=== PATIENT | female | born 2000 | race Caucasian/White ===

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

== ENCOUNTER → 2018-02-25 14:43 | Outpatient (CLI) | payer OTHER, SELFPAY ==
[2018-02-25 23:11] LABS: Probe Check PASS; Sample Adequacy Control PASS; Specimen Processing Control PASS; Trichomonas Vag DNA by PCR Negative (Negative)
== END ==
PROVIDERS: Visit Provider Obstetrics & Gynecology
DX: Z11.3 Encounter for screening for infections with a predominantly sexual mode of transmission (principal)
CPT/HCPCS: 87661

== ENCOUNTER → 2018-05-01 15:22 | Outpatient (CLI) | payer OTHER, SELFPAY ==
[2017-04-06 03:23] VITALS: BMI 37.1
[2018-05-01 17:18] LABS: Probe Check PASS; Sample Adequacy Control PASS; Specimen Processing Control PASS; Trichomonas Vag DNA by PCR Negative (Negative)
[2018-05-01 17:40] LABS: Chlamydia Trachomatis by PCR Negative (Negative); Neisserai gonorrhoeae by PCR Negative (Negative); Probe Check PASS; Sample Adequacy Control PASS; Specimen Processing Control PASS
[2018-05-04 11:29] LABS: HEPATITIS B SURFACE AG Negative (Negative); Hep B Surface Antibodies Non Reactive (.); Hep C Antibodies 0.1 s/co ratio (0.0-0.9)
--- OUTSIDE RECORDS SUMMARY | 2018-07-06 11:04 | XMS RPT_ITS ---
:2000 Author Organization OHIP Care Team Providers Name Role Phone Viola Mccoy Attending Unavailable Primay Care Physicia, No Primary Care Unavailable Viola Mccoy Attending Unavailable Primay Care Physicia, No Primary Care Unavailable Viola Mccoy Attending Unavailable Primay Care Physicia, No Primary Care Unavailable Kambalapalli, Xander Admitting Unavailable Kambalapalli, Xander Attending Unavailable Bojtos, Evonne Primary Care Unavailable Romelia Hilliard Attending Unavailable [place]amb[place], Xander Primary Care Unavailable Romelia Hilliard Admitting Unavailable [place], Xander Admitting Unavailable [place], Xander Attending Unavailable Bojtos, Evonne Primary Care Unavailable Angel Elizondo Admitting Unavailable Angel Elizondo Attending Unavailable Bojtos, Evonne Primary Care Unavailable Eduardo Pacheco Attending Unavailable Bojtos, Evonne Primary Care Unavailable Eduardo Pacheco Admitting Unavailable Wurstle, Pita M Admitting Unavailable Wurstle, Pita M Attending Unavailable Bojtos, Evonne Primary Care Unavailable Wurstle, Pita M Admitting Unavailable Wurstle, Pita M Attending Unavailable Bojtos, Evonne Primary Care Unavailable [place]ambalapalli, Xander Admitting Unavailable [place]ambal[place], Xander Attending Unavailable Bojtos, Evonne Primary Care Unavailable Gio, Dona S Admitting Unavailable Gio, Dona S Attending Unavailable Bojtos, Evonne Primary Care Unavailable KAMBALAPALLI, XANDER Attending Unavailable BOJTOS, EVONNE A Referring Unavailable BOJTOS, EVONNE A Primary Care Unavailable KAMBALAPALLI, XANDER Attending Unavailable BOJTOS, EVONNE A Referring Unavailable BOJTOS, EVONNE A Primary Care Unavailable PROBLEMS PROBLEMS DATE TYPE CONDITION / CODE ATTENDING STATUS SOURCE 05/01/2018 Unknown Z11.3 - Encounter Nadine, Active Adrian for screening for [facility] with [facility] Repository sexual mode of transmission / Z11.3(ICD-10) PROCEDURES PROCEDURES No Procedure Records FoundRESULTS RESULTS HEPATITIS B SURFACE Collected: 05/01/2018 Status: F Source: ADRIAN AG 2:40 PM [facility] REPOSITORY TYPE CODE TESTS RESULT OUT OF RANGE REFERENCE UNITS LAB L3100.0400 Negative Normal HB Negative SURF AG Result Comment: Performed at: - [facility] [address] [id number] Ctrs: Daniel Shi PhD, Phone: [phone] Performed By: #### L3100.0390, L3100.0528, L3100.0625 #### [facility] (refer to report for specific site) refer to report for address and phone number HEP B SURFACE Collected: 05/01/2018 Status: F Source: ADRIAN ANTIBODIES 2:40 PM [facility] REPOSITORY TYPE CODE TESTS RESULT OUT OF RANGE REFERENCE UNITS LAB L3100.0528 . Normal Hep B Non Reactive Daniel AB Result Comment: Non Reactive: Inconsistent with immunity, less than 10 mIU/mL Reactive: Consistent with immunity, greater than 9.9 mIU/mL Verified by repeat analysis Performed By: #### L3100.0390, L3100.0528, L3100.0625 #### [facility] (refer to report for specific site) refer to report for address and phone number HEPATITIS C ANTIBODIES Collected: 05/01/2018 Status: F Source: [place] 2:40 PM [facility] REPOSITORY TYPE CODE TESTS RESULT OUT OF RANGE REFERENCE UNITS LAB L3100.0650 0.0-0.9 s/co ratio Normal HEP C AB 0.1 Result Comment: Negative: < 0.8 Indeterminate: 0.8 - 0.9 Positive: > 0.9 The CDC recommends that a positive HCV antibody result be followed up with a HCV Nucleic Acid Amplification test ([id number]). Performed By: #### L3100.0390, L3100.0528, L3100.0625 #### [facility] (refer to report for specific site) refer to report for address and phone number CT/NG WCH BY PCR Collected: 05/01/2018 Status: F Source: [place] 2:15 PM [facility] REPOSITORY TYPE CODE TESTS RESULT OUT OF RANGE REFERENCE UNITS LAB L8200.2100 Negative Normal Chlam Negative Trac PCR LAB L8200.2200 Negative Normal NG by Negative PCR Performed By: #### L8200.2000, L8200.3000 #### [facility] [address] [place], [place], [id number] TRICHOMONAS VAGINALIS Collected: 05/01/2018 Status: F Source: [place] WCH/PCR 2:15 PM [facility] REPOSITORY TYPE CODE TESTS RESULT OUT OF RANGE REFERENCE UNITS LAB L8200.3100 Negative Normal TV RESULT Negative Performed By: #### L8200.2000, L8200.3000 #### [facility] [address] [place], [place], [address] TRICHOMONAS VAGINALIS Collected: 02/25/2018 Status: F Source: [place] WCH/PCR 2:00 PM [facility] REPOSITORY TYPE CODE TESTS RESULT OUT OF RANGE REFERENCE UNITS LAB L8200.3100 Negative Normal TV RESULT Negative Performed By: #### L8200.3000 #### [facility] [address] [place], [place], [address] CMP Collected: 01/27/2018 Status: F Source: [place]ISM 3:31 PM [facility] REPOSITORY TYPE CODE TESTS RESULT OUT OF RANGE REFERENCE UNITS LAB [id number](L 6-16 mEq/L OINC) AGAP Normal 12 LAB [id number](L 70-99 mg/dL OINC) Glucose Normal Lvl 78 LAB [id number](L 6-23 mg/dL OINC) BUN Normal 12 LAB [id number](LO 0.6-1.3 mg/dL INC) Normal Creatinine 0.8 LAB [id number](L 8.5-10.7 mg/dL OINC) Calcium Normal Lvl 10.0 LAB [id number](L 136-145 mEq/L OINC) Sodium Normal Lvl 140 LAB [id number](L 3.5-5.3 mEq/L OINC) Normal Potassium Lvl 4.3 LAB [id number](L 98-107 mEq/L OINC) Chloride Normal 106 LAB [id number](L 21.0-32.0 mEq/L OINC) CO2 Normal 26.0 LAB [id number](L 33-110 Int._Unit/ OINC) L Alk Phos Normal 56 LAB [id number](L 0.0-1.2 mg/dL OINC) Bili Normal Total 0.5 LAB [id number](L 3.4-5.0 G/DL OINC) Albumin Normal Lvl 4.6 LAB [id number](L 6.4-8.2 gm/dL OINC) Total Normal Protein 7.5 LAB [id number](L 7-45 Int._Unit/ OINC) L ALT Normal 23 LAB [id number](L 9-39 Int._Unit/ OINC) L AST Normal 21 LAB [id number](L 5.4-30.0 ratio OINC) Normal BUN/Creat Ratio 15.0 LAB [id number](L 2.0-4.0 G/DL OINC) Globulin Normal 3.0 LAB [id number](L 1.1-1.9 ratio OINC) A/G Normal Ratio 1.6 Performed By: #### [id number] #### [facility] [employer] [address] [place] [address] EGFR Collected: 01/27/2018 Status: F Source: [place] 3:31 PM [facility] REPOSITORY Order Comment: Order added by Discern Expert. TYPE CODE TESTS RESULT OUT OF RANGE REFERENCE UNITS LAB [id number](LO mL/min/1.73 INC) m2 Normal eGFR >60 LAB [id number](LO mL/min/1.73 INC) m2 Normal eGFR AA >60 Performed By: #### [id number] #### [facility] [employer] [address] [place] [address] TSH Collected: 01/27/2018 Status: F Source: [place] 3:31 PM [facility] REPOSITORY TYPE CODE TESTS RESULT OUT OF RANGE REFERENCE UNITS LAB [id number](LO 0.30-5.60 mIU/m INC) Normal TSH 2.64 Performed By: #### [id number] #### [facility] [employer] [address] [place] [address] FREE T4 Collected: 01/27/2018 Status: F Source: [place] 3:31 PM [facility] REPOSITORY TYPE CODE TESTS RESULT OUT OF RANGE REFERENCE UNITS LAB [id number](LO 0.58-1.64 ng/dL INC) Normal T4 Free 0.94 Performed By: #### [id number] #### [facility] [employer] [address] [place] [address] VITAMIN D 25 HYDROXY Collected: 01/27/2018 Status: F Source: [place] 3:31 PM [facility] REPOSITORY TYPE CODE TESTS RESULT OUT OF RANGE REFERENCE UNITS LAB [id number](L 30.0-100.0 ng/mL OINC) Normal Vitamin D 25 37.0 Hydroxy Performed By: #### [id number] #### [facility] [employer] [address] [place] [address] HGBA1C Collected: 01/27/2018 Status: F Source: [place] 3:31 PM [facility] REPOSITORY TYPE CODE TESTS RESULT OUT OF RANGE REFERENCE UNITS LAB [id number]( 4.0-6.3 % LOINC) Normal Hemoglobin A1c 4.9 Performed By: #### [id number] #### K[facility] Chemistry Manual Subsection [address] [place] [address] LITHIUM Collected: 01/27/2018 Status: F Source: [place] 3:30 PM [facility] REPOSITORY TYPE CODE TESTS RESULT OUT OF REFERENCE UNITS RANGE LAB [id number](LO 0.6-1.2 mmol/L INC) Low Celina Lvl 0.1 Result Comment: Detection Limit = 0.1 <0.1 indicates None Detected Performed At: [facility] [address] [id number] Jose Guadalupe Sanchez PhD Ph:[phone] Performed By: #### [id number] #### [facility]ASH Send Outs Subsection [facility] [place] [address] CBC W/ AUTO DIFF Collected: 12/19/2017 Status: F Source: [place] 1:00 PM [facility] REPOSITORY TYPE CODE TESTS RESULT OUT OF RANGE REFERENCE UNITS LAB [id number](L 3.6-11.0 E3/mcL OINC) Normal WBC 11.0 LAB [id number](L 3.90-5.40 E6/mcL OINC) Normal RBC 4.91 LAB [id number](L 12.0-16.0 G/DL OINC) Normal Hgb 14.5 LAB [id number](L 36.0-48.0 % OINC) Normal Hct 44.0 LAB [id number](L 11.5-14.5 % OINC) Normal RDW 13.4 LAB [id number](L 27.0-31.0 pg OINC) Normal MCH 29.5 LAB [id number](L 33.0-37.0 G/DL OINC) Low MCHC 32.9 LAB [id number](L 78.0-100.0 fL OINC) Normal MCV 89.6 LAB [id number](L 7.4-11.0 fL OINC) Normal MPV 7.8 LAB [id number](L 130-400 E3/mcL OINC) Normal Platelet 361 Performed By: #### [id number] #### [facility] [place] [address] AUTO DIFF Collected: 12/19/2017 Status: F Source: [place] 1:00 PM [facility] REPOSITORY Order Comment: Order Added by Discern Expert. TYPE CODE TESTS RESULT OUT OF RANGE REFERENCE UNITS LAB [id number](L 37.0-75.0 % OINC) Normal Neutro Auto 55.2 LAB [id number](L 20.0-55.0 % OINC) Normal Lymph Auto 34.7 LAB [id number](L 0.0-10.0 % OINC) Normal [place] Auto 4.8 LAB [id number](L 0.0-11.0 % OINC) Normal Eos Auto 4.1 LAB 82138012(L 0.0-2.0 % OINC) Normal Basophil Auto 1.2 LAB [id number](L 1.4-6.5 E3/mcL OINC) Normal Neutro 6.1 Absolute LAB [id number](L 1.2-3.4 E3/mcL OINC) High Lymph Absolute 3.8 LAB [id number](L 0.0-0.7 E3/mcL OINC) Normal [place] Absolute 0.5 LAB [id number](L 0.0-0.7 E3/mcL OINC) Normal Eos Absolute 0.5 LAB [id number](L 0.0-0.2 E3/mcL OINC) Normal Basophil 0.1 Absolute Performed By: #### [id number] #### [facility] [place] [id number] BMP Collected: 12/19/2017 Status: F Source: [place] 1:00 [facility] REPOSITORY TYPE CODE TESTS RESULT OUT OF RANGE REFERENCE UNITS LAB [id number](L 70-99 mg/dL OINC) Glucose Normal Lvl 78 LAB [id number](L 7-18 mg/dL OINC) BUN Normal 10 LAB [id number](LO 0.6-1.3 mg/dL INC) Normal Creatinine 0.8 LAB [id number](L 5.4-30.0 ratio OINC) Normal BUN/Creat Ratio 12.5 LAB [id number](L 8.4-10.2 mg/dL OINC) Calcium Normal Lvl 9.2 LAB [id number](L 136-145 mEq/L OINC) Sodium Normal Lvl 138 LAB [id number](L 3.5-5.1 mEq/L OINC) Normal Potassium Lvl 4.2 LAB [id number](L 98-107 mEq/L OINC) Chloride Normal 104 LAB [id number](L 24.0-30.0 mEq/L OINC) Low CO2 23.7 Performed By: #### [id number] #### [facility] [place] [id number] EGFR Collected: 12/19/2017 Status: F Source: [place] 1:00 [facility] REPOSITORY Order Comment: Order added by Discern Expert. TYPE CODE TESTS RESULT OUT OF RANGE REFERENCE UNITS LAB [id number](LO mL/min/1.73 INC) m2 Normal eGFR >60 LAB [id number](LO mL/min/1.73 INC) m2 Normal eGFR AA >60 Performed By: #### [id number] #### [facility] [employer] [facility] [place] [address] LITHIUM Collected: 12/19/2017 Status: F Source: [place] 1:00 PM [facility] REPOSITORY TYPE CODE TESTS RESULT OUT OF REFERENCE UNITS RANGE LAB [id number](LO 0.6-1.2 mmol/L INC) Low [place] Lvl 0.5 Result Comment: Detection Limit = 0.1 <0.1 indicates None Detected Performed At: [facility] [address] [id number] Jose Guadalupe Sanchez PhD Ph:[phone] Performed By: #### [id number] #### KASH [employer] Outs Subsection [address] [place] [address] Observed: 11/26/2017 Status: F Source: [facility] URINE 5:41 PM [facility] REPOSITORY Final Report: >100,000 cfu/ml Escherichia coli ORGANISM: EC SUSCEPTIBILITY RESULTS Antibiotic EMILY Dilutn EMILY Interp ORGANISM: EC Amox/Cla : <=8/4 S Amp : <=8 S Amp/Sul : <=8/4 S Cefaz : <=8 S Cefo : <=2 S Cipro : <=1 S Gent : <=4 S Levo : <=2 S Alix : <=1 S Nitro : <=32 S Pip/Chu : <=16 S Tetra : <=4 S Tobra : <=4 S SXT : <=2/38 S Performed By: #### [id number] #### [facility] [employer] Subsection [address] [place] [address] PROGRESS NOTE Observed: 11/21/2017 Status: COMPLETED Source: [place] 12:50 PM [facility] REPOSITORY Dear Doctor Evonne Nicholson MD: We had the pleasure of seeing your patient, Scarlett Page, at the [facility] clinic for follow up of Hypothyroidism. Scarlett is a 17 y.o. female who comes to the visit with her mom. HPI: Scarlett is a 17 y.o. female with history of anxiety and depression, who was seen for initial visit in February 2015 in view of Goiter and thyroid nodule. Was seen by PCP for excess weight gain, noted goiter and Thyroid Ultrasound was requested. Thyroid Ultrasound showed a 4 cm solid left thyroid nodule. She was otherwise asymptomatic. After initial visit she had FNA/ core biopsy of the lesion, which showed a benign follicular lesion, vs a well differentiated follicular carcinoma. Surgery discussed option of hemithyroidectomy, with possible total thyroidectomy based on pathology report. Family elected to go with total thyroidectomy. She underwent Total thyroidectomy on 04/11/15, with no complications . Final pathology was hyperplastic nodule with thyroiditis. She has history of depression and anxiety, and is followed by Psychiatry and psychology. No family history of thyroid disease or thyroid cancer. Interval history: Last seen 05/2017. Has been well since last visit. No new concerns from mom. After last visit levothyroxine dose was decreased to 175 mcg as her TSh was suppressed. Repeat labs on 175 mcg from September 2017, were normal. Family completed labs again 2 days before the visit, and TSH now at 8.3. FNA reports she may have missed 1 or 2 doses in total since last visit. Takes Synthroid 175 mcg daily, in the morning 30 min before breakfast. Mom gives her medication, since her past history of suicidal ideation. Reports good energy, no fatigue, no constipation, no hair loss, no dry skin, cold intolerance. Denies palpitations, chest pain, excessive sweating, heat intolerance. No neck swelling, no pain or difficulty swallowing. No change in voice or hoarseness. Regular menstrual cycles on OCP's. LMP 2weeks ago Mood has been stable. Getting weekly counseling. Was started on lithium about 3 months ago. Scarlett reports that she has been doing better about watching her diet, not eating as much late in the evening. Weight stable since last visit. Denies polyuria or polydipsia. Scarlett graduated from school. Will be starting college at [employer]. PAST MEDICAL HISTORY: Scarlett was born at term weeks via vaginal. history was unremarkable, birthweight of 6lbs 4oz, length of 19'. Denies problems with breathing, poor weight gain, jaundice, heart murmur, low blood sugar or seizures during the first month of life. Medical problems: Patient Active Problem List Diagnosis Date Noted BMI (body mass index), pediatric, 95-99% for age 0205/16/2015 Postoperative hypothyroidism 05/16/2015 BMI (body mass index), pediatric, greater than or equal to 95% for age 0205/16/2015 S/P thyroidectomy 04/11/2015 Thyroid nodule 03/16/2015 Goiter 03/16/2015 Depressive disorder 03/08/2015 Anxiety 03/08/2015 Hospitalizations: none Surgeries: Past Surgical History: Procedure Laterality Date THYROIDECTOMY N/A 04/11/2015 THYROIDECTOMY total; flexible laryngoscopy performed by Sami Stuart MD at [facility] OR TONSILLECTOMY AND ADENOIDECTOMY SOCIAL HISTORY: Scarlett lives with both parents and brother. Scarlett will be at [employer] in [facility]. FAMILY HISTORY: Family History Problem Relation Age of Onset High Blood Pressure Mother High Blood Pressure Father High Cholesterol Father Cancer Maternal Grandfather skin cancer Bleeding Prob Maternal Grandfather Hernia Brother Diabetes Neg Hx Thyroid Disease Neg Hx Early Puberty Neg Hx Short Stature Neg Hx Anesth Problems Neg Hx Post-op N/V Neg Hx Father: 48 years, 5ft 10', HTN, puberty 12 years Mother: 47 years, 5ft 6', HTN, puberty 12 years Siblings: 13 yr old brother, healthy ALLERGIES: Amoxicillin CURRENT MEDICATIONS: Current Outpatient Prescriptions Medication Sig Dispense Refill lithium 300 MG tablet Take 600 mg by mouth 2 times daily levothyroxine (SYNTHROID) 175 MCG tablet Take 1 Tab (175 mcg) by mouth daily This is a dose adjustment to take 175 mcg daily 90 Tab 3 citalopram (CELEXA) 20 MG tablet Take 40 mg by mouth Desogestrel-Ethinyl Estradiol (VIORELE PO) Take by mouth topiramate (TOPAMAX) 200 MG tablet Take by mouth 2 times daily clonazePAM (KLONOPIN) 0.5 MG tablet Take 0.5 mg by mouth 3 times daily TRAZODONE HCL PO Take 25 mg by mouth ARIPiprazole (ABILIFY) 2 MG tablet Take by mouth daily No current facility-administered medications for this visit. REVIEW OF SYSTEMS: Pertinent items are noted in HPI. CONSTITUTIONAL: negative for fever, weight loss, excessive appetite or fatigue, EYES: negative for change in vision ENT: negative for difficulty swallowing RESPIRATORY: negative for difficulty breathing, wheezing, stridor, tachypnea, CARDIOVASCULAR: negative for increased heart rate, syncope,cyanosis GI: negative for constipation, vomiting, diarrhea, : negative for frequent urination and nocturia; LMP 4 weeks ago SKIN: negative for flushing, changes in skin temperature or texture MUSCULOSKELETAL: negative for joint pain/ swelling, muscle weakness or swelling NEURO: negative for headache, weakness, visual changes, tremors PSYCH: positive for sleep disturbance, mood changes, depression, anxiety PHYSICAL EXAMINATION: Blood pressure 122/80, pulse 78, height 169.1 cm, weight 98.2 kg. 98 %ile (Z= 2.16) based on CDC 2-20 Years [id number] data using vitals from 11/21/2017. Body mass index is 34.34 kg/m . 97 %ile (Z= 1.90) based on CDC 2- Years BMI-for-age data using vitals from 11/21/2017. 82 %ile (Z= 0.90) based on CDC - Years [id number]-lbe-dml data using vitals from 11/21/2017., Wt Readings from Last 2 Encounters: 11/21/17 98.2 kg (98 %, Z= 2.16)* 05/23/17 98.2 kg (98 %, Z= 2.16)* * Growth percentiles are based on CDC 2-20 Years data. Ht Readings from Last 2 Encounters: 11/21/17 169.1 cm (82 %, Z= 0.90)* 05/23/17 167.5 cm (75 %, Z= 0.66)* * Growth percentiles are based on CDC 2-20 Years data. BP Readings from Last 2 Encounters: 11/21/17 122/80 05/23/17 112/78 Blood pressure percentiles are 81 % systolic and 93 % diastolic based on the November 2016 AAP Clinical Practice Guideline. Blood pressure percentile targets: 90: 127/78, 95: 129/82, 95 + 12 mmH/94. This reading is in the Stage 1 hypertension range (BP >= 130/80). GENERAL APPEARANCE: alert, cooperative, no dysmorphic features, obese SKIN: no rashes, acanthosis nigricans +, no striae, warm and dry EYES: conjunctivae clear, pupils equal, round, reactive to light ENT: lips normal without lesions, Pharynx clear,and tonsils normal THYROID: no palpable thyroid, scar over anterior neck, LYMPH: cervical nodes are not enlarged LUNGS: unlabored respirations, clear to auscultation, good air exchange HEART: regular rate, regular rhythm, no murmurs detected, no edema of extremities ABDOMEN: soft, nontender, nondistended, no hepatosplenomegaly, no masses CHEST: symmetric MUSCULOSKELETAL: normal range of motion, no joint swelling or deformities, normal muscle mass : Deferred. NEURO: cranial nerves grossly intact, sensation grossly normal, Scarlett is alert and oriented, patellar and brachial reflexes are 2+. PSYCH: Scarlett is oriented and flat affect. LABS REVIEWED: Ref. Range 05/20/2017 00:00 07/31/2017 00:00 10/07/2017 00:00 11/19/17 T4 Free External Unknown 1.07 1.01 0.84 0.69 Thyroid Stimulating Hormone External Unknown 0.10 0.22 1.47 8.32 Decreased levothyroxine to 175 mcg alternating with 200 ( was on 200 mcg) Decreased to 175 mcg On 175 mcg 0n 175 mcg 02/2017: TSH 0.35 11/01/16: HbA1C 5.3% Glucose 79 Cholesterol 213 Triglyceride 165 LDL: 125 HDL 55 ALT: 27 AST: 30 10/15/2016 00:00 A1c 5.2 T4 Free External 0.89 Thyroid Stimulating Hormone External 1.82 04/2016: TSH 7.96 Free T4 0.72 10/13/15: TSH 8.03 Free T4 0.81 08/2015: TSH 42.7; Free T4: 0.56 Was taking multivitamin with Iron at the same time. Increase dose to 150 mcg 05/11/15: TSH: 16.45 Free T4: 0.65 Calcium: 9.6 Phosphorus: 3.5 Ref. Range 04/11/2015 20:20 04/12/2015 06:15 Calcium, Ionized WB Latest Range: 4.60-5.28 mg/dL 4.49 (L) 4.42 (L) pH Latest Range: 7.350-7.450 7.408 7.435 Phosphorus Latest Range: 2.7-4.5 mg/dL 2.9 4.1 04/11/15: Pathology: FINAL DIAGNOSIS: A. Pretracheal lymph node, biopsy - No metastatic disease identified. B. Thyroid, left lobectomy - Hyperplastic nodule and patchy chronic thyroiditis. C. Tissue, biopsy, rule out parathyroid - Fragments of parathyroid tissue. D. Thyroid, right lobectomy - Patchy chronic thyroiditis. E. Left jugular lymph nodes, biopsy - No metastatic disease Identified. 03/08/15: Core biopsy: FINAL DIAGNOSIS: Follicular lesion, needle core of thyroid. COMMENT: The specimen could reflect a follicular adenoma or well differentiated follicular carcinoma. Recommend surgical removal. 03/08/15: FNA: Diagnostic Category: Benign Benign follicular nodule, consistent with a hyperplastic/adenomatoid nodule. Many groups of follicular cells and colloid present. Component Latest Ref Rng 03/08/2015 03/08/2015 03/08/2015 10:53 AM 10:53 AM 10:53 AM Sodium 133 - 145 mEq/L 139 Potassium 3.3 - 5.1 mEq/L 4.2 Chloride 96 - 108 mEq/L 106 Carbon Dioxide 22.0 - 29.0 mEq/L 24.6 BUN 4 - 19 mg/dL 13 Glucose 70 - 99 mg/dL 79 Total Bilirubin 0.0 - 1.0 mg/dl 0.4 AST 0 - 31 U/L 23 ALT 0 - 31 U/L 20 Alkaline Phosphatase 47 - 119 U/L 47 Calcium 7.6 - 11.0 mg/dL 9.6 Protein, Total 5.9 - 8.4 g/dL 7.4 Albumin 3.2 - 4.5 g/dL 4.2 Creatinine 0.50 - 1.00 mg/dL 0.70 Anti-Thyroglobulin Ab 0.0 - 4.0 IU/mL 13.5 (H) Thyroidperoxidase Ab 0.00 - 0.80 ISR 1.00 (H) TSH 0.350 - 5.500 uIU/mL 1.002 T4, Free 0.8 - 1.4 ng/dL 1.2 T3, Total 87.0 - 167.0 ng/mL 184.0 (H) 184.0 (H) 01/14/15: CBC: normal Hb 12.0 Glucose: 82 Per PCP note: Normal CMP, CBC, 11/2014: TSH 3.13 04/2013: TSH 0.879 IMAGING: Thyroid Ultrasound: 02/2015 Findings: right lobe 55 X 11X16 mm Left lobe: 66 X21X27 mm dominant mid to inferior pole solid/ complex nodule measuring 41 X21X35 mm. Impression: Thyromegaly with a dominant 4 cm nodule Reviewed images: homogenous echogenicity, large, well defined, solid nodule noted in left lobe. No abnormal calcifications noted. IMPRESSION: Scarlett is a 17 y.o. female with history of depression, here for follow up of Hypothyroidism s/p Total Thyroidectomy for Thyroid Nodule: Large 4 cm nodule in left thyroid lobe, with FNA positive for follicular lesion ( adenoma vs carcinoma on biopsy), underwent total thyroidectomy in March 2015 with no complications. Pathology confirmed hyperplastic nodule with thyroiditis. She is currently on synthroid 175 mcg replacement, and is clinically euthyroid. Her recent TSH is mildly elevated, however previous level from September 2017, on the same dose was normal. Will continue same dose and repeat TFT's in 2-3 months. BMI greater than 95 th centile: Weight stable since last visit. Encouraged about the positive results so far. PLAN: Reviewed recent labs. Continue levothyroxine to 175 mcg. Repeat Thyroid labs in 2-3 months. provided orders for repeat labs. Will also get CMP, HbA1C, Vitamin D. Discussed balanced diet, regular physical activity and excellent results so far. Follow up in 6-8 months, sooner if concerns. Discussed transition to adult provider. Advised to check when they switch to adult primary care provider, as most are comfortable with treating hypothyroidism. For now will continue to follow here. Counseling and/or coordination of care (face to face time in the office) was greater than 30 minutes which is more than 50% of the total time of 45 minutes spent on the encounter. Thank you for the opportunity to participate in the care of Scarlett. If you have any questions, please do not hesitate to contact our office at [phone]. Sincerely, Xander Kim MD [facility] [address] [place] [address] [place] [id number] TSH Collected: 11/19/2017 Status: F Source: YARSANISM 12:09 PM [facility] REPOSITORY TYPE CODE TESTS RESULT OUT OF RANGE REFERENCE UNITS LAB [id number](LO 0.30-5.60 mIU/m INC) High TSH 8.32 Performed By: #### [id number] #### KASH [employer] [address] [place] [address] FREE T4 Collected: 11/19/2017 Status: F Source: YARSANISM 12:09 PM [facility] REPOSITORY TYPE CODE TESTS RESULT OUT OF RANGE REFERENCE UNITS LAB [id number](LO 0.58-1.64 ng/dL INC) Normal T4 Free 0.69 Performed By: #### [id number] #### KASH [employer] [address] [place] [address] BUN Collected: 11/05/2017 Status: F Source: YARSANISM 10:03 AM [facility] REPOSITORY TYPE CODE TESTS RESULT OUT OF RANGE REFERENCE UNITS LAB [id number](LO 7-18 mg/dL INC) Normal BUN 11 Performed By: #### [id number] #### KASH [employer] [address] [place] [address] EGFR Collected: 11/05/2017 Status: F Source: YARSANISM 10:03 AM [facility] REPOSITORY Order Comment: Order added by Discern Expert. TYPE CODE TESTS RESULT OUT OF RANGE REFERENCE UNITS LAB [id number](LO mL/min/1.73 INC) m2 Normal eGFR >60 LAB [id number](LO mL/min/1.73 INC) m2 Normal eGFR AA >60 Performed By: #### [id number] #### [place] [address] CREATININE Collected: 11/05/2017 Status: F Source: YARSANISM 10:03 AM [facility] REPOSITORY TYPE CODE TESTS RESULT OUT OF RANGE REFERENCE UNITS LAB [id number](LO 0.6-1.3 mg/dL INC) Normal Creatinine 0.7 Performed By: #### [id number] #### [place] [address] LITHIUM Collected: 11/05/2017 Status: F Source: YARSANISM 10:03 AM [facility] REPOSITORY TYPE CODE TESTS RESULT OUT OF REFERENCE UNITS RANGE LAB [id number](LO 0.6-1.2 mmol/L INC) Low Celina Lvl 0.4 Result Comment: Detection Limit = 0.1 <0.1 indicates None Detected Performed At: [facility] [id number] Jose Guadalupe Sanchez PhD Ph:[phone] Performed By: #### [id number] #### KASH [employer] Outs Subsection [address] [place] [address] BUN Collected: 10/07/2017 Status: F Source: YARSANISM 11:08 [facility] REPOSITORY TYPE CODE TESTS RESULT OUT OF RANGE REFERENCE UNITS LAB [id number](LO 7-18 mg/dL INC) Normal BUN 13 Performed By: #### [id number] #### [place] [address] EGFR Collected: 10/07/2017 Status: F Source: YARSANISM 11:08 [facility] REPOSITORY Order Comment: Order added by Discern Expert. TYPE CODE TESTS RESULT OUT OF RANGE REFERENCE UNITS LAB [id number](LO mL/min/1.73 INC) m2 Normal eGFR >60 LAB [id number](LO mL/min/1.73 INC) m2 Normal eGFR AA >60 Performed By: #### [id number] #### KASH [employer] [address] [place] [address] CREATININE Collected: 10/07/2017 Status: F Source: YARSANISM 11:08 [facility] TYPE CODE TESTS RESULT OUT OF RANGE REFERENCE UNITS LAB [id number](LO 0.6-1.3 mg/dL INC) Normal Creatinine 0.7 Performed By: #### [id number] #### [place] [address] LITHIUM Collected: 10/07/2017 Status: F Source: YARSANISM 11:08 [facility] TYPE CODE TESTS RESULT OUT OF REFERENCE UNITS RANGE LAB [id number](LO 0.6-1.2 mmol/L INC) Low Celina Lvl 0.4 Result Comment: Detection Limit = 0.1 <0.1 indicates None Detected Performed At: [facility] [id number] Jose Guadalupe Sanchez PhD Ph:[phone] Performed By: #### [id number] #### KASH [employer] [address] [place] [address] TSH Collected: 10/07/2017 Status: F Source: YARSANISM 11:07 [facility] REPOSITORY TYPE CODE TESTS RESULT OUT OF RANGE REFERENCE UNITS LAB [id number](LO 0.30-5.60 mIU/m INC) Normal TSH 1.47 Performed By: #### [id number] #### [place] [address] FREE T4 Collected: 10/07/2017 Status: F Source: YARSANISM 11:07 AM [facility] REPOSITORY TYPE CODE TESTS RESULT OUT OF RANGE REFERENCE UNITS LAB [id number](LO 0.58-1.64 ng/dL INC) Normal T4 Free 0.84 Result Comment: Patients receiving more than 5mg/day of biotin may have interference in test results. A sample should be taken no sooner than eight hours after previous dose. Performed By: #### [id number] #### KASH [facility] [facility] [place] [id number] TSH Collected: 07/31/2017 Status: F Source: YARSANISM 11:51 AM [facility] REPOSITORY TYPE CODE TESTS RESULT OUT OF RANGE REFERENCE UNITS LAB [id number](LO 0.30-5.60 mIU/m INC) Low TSH 0.22 Performed By: #### [id number] #### KASH [employer] [address] [place], [place] [id number] FREE T4 Collected: 07/31/2017 Status: F Source: YARSANISM 11:51 AM [facility] REPOSITORY TYPE CODE TESTS RESULT OUT OF RANGE REFERENCE UNITS LAB [id number](LO 0.58-1.64 ng/dL INC) Normal T4 Free 1.01 Performed By: #### [id number] #### KASH [employer] [address] [place], [place] [address] CT/NG [facility] BY PCR Collected: 07/29/2017 Status: F Source: [place] 4:10 PM [facility] REPOSITORY TYPE CODE TESTS RESULT OUT OF RANGE REFERENCE UNITS LAB [id number] Negative Normal Chlam Negative Trac PCR LAB L8200.2200 Negative Normal NG by Negative PCR Performed By: #### L8200.1999 #### [facility] [address] [place], [address] Observed: 06/07/2017 Status: F Source: [facility] URINE 2:54 PM [facility] REPOSITORY Final Report: Normal skin marii isolated Performed By: #### [id number] #### KASH [employer] Subsection [address] [place] [address] PROGRESS NOTE Observed: 05/23/2017 Status: COMPLETED Source: INVER[place] 2:50 PM [facility] REPOSITORY Dear Doctor Evonne Nicholson MD: We had the pleasure of seeing your patient, Scarlett Page, at the [facility]ocrine clinic for follow up of Hypothyroidism. Scarlett is a 16 y.o. female who comes to the visit with her mom. HPI: Scarlett is a 16 y.o. female with history of anxiety and depression, who was seen for initial visit in February 2015 in view of Goiter and thyroid nodule. Was seen by PCP for excess weight gain, noted goiter and Thyroid Ultrasound was requested. Thyroid Ultrasound showed a 4 cm solid left thyroid nodule. She was otherwise asymptomatic. After initial visit she had FNA of the lesion, which showed a benign follicular lesion, vs a well differentiated follicular carcinoma. She underwent Total thyroidectomy on 04/11/15, with no complications . Final pathology was hyperplastic nodule with thyroiditis. She has history of depression and anxiety, currently on medication (trazodone, Citalopram, aripiprazole), and followed by Psychiatry and psychology. No family history of thyroid disease or thyroid cancer. Interval history: Last seen 12/2016. Has been well since last visit. No new concerns from mom. Did not require any dose adjustment since last visit. Recent TSH slightly suppressed at 0.1. Denies palpitations, chest pain, excessive sweating, heat intolerance. Takes Synthroid 200 mcg daily, in the morning 30 min before breakfast. Rare missed doses, missed 1-2 doses in the last 6 months. Mom gives her medication, since her past history of suicidal ideation. Reports good energy, no fatigue, no constipation, no hair loss, no dry skin, cold intolerance. No neck swelling, no pain or difficulty swallowing. No change in voice or hoarseness. Regular menstrual cycles on OCP's. LMP 04/25/17. Mood has been stable. Getting weekly counseling. Scarlett reports that she has been doing better about watching her diet, not eating as much late in the evening. Lost 15 lbs since last visit. PAST MEDICAL HISTORY: Scarlett was born at term weeks via vaginal. history was unremarkable, birthweight of 6lbs 4oz, length of 19'. Denies problems with breathing, poor weight gain, jaundice, heart murmur, low blood sugar or seizures during the first month of life. Medical problems: Patient Active Problem List Diagnosis Date Noted BMI (body mass index), pediatric, 95-99% for age 0205/16/2015 Postoperative hypothyroidism 05/16/2015 BMI (body mass index), pediatric, greater than or equal to 95% for age 0205/16/2015 S/P thyroidectomy 04/11/2015 Thyroid nodule 03/16/2015 Goiter 03/16/2015 Depressive disorder 03/08/2015 Anxiety 03/08/2015 Hospitalizations: none Surgeries: Past Surgical History: Procedure Laterality Date THYROIDECTOMY N/A 04/11/2015 THYROIDECTOMY total; flexible laryngoscopy performed by Sami Stuart MD at [facility] OR TONSILLECTOMY AND ADENOIDECTOMY SOCIAL HISTORY: Scarlett lives with both parents and brother. Scarlett is in 12th grade Online school with average grades. FAMILY HISTORY: Family History Problem Relation Age of Onset High Blood Pressure Mother High Blood Pressure Father High Cholesterol Father Cancer Maternal Grandfather skin cancer Bleeding Prob Maternal Grandfather Hernia Brother Diabetes Neg Hx Thyroid Disease Neg Hx Early Puberty Neg Hx Short Stature Neg Hx Anesth Problems Neg Hx Post-op N/V Neg Hx Father: 48 years, 5ft 10', HTN, puberty 12 years Mother: 47 years, 5ft 6', HTN, puberty 12 years Siblings: 13 yr old brother, healthy Denies further family history of diabetes, goiter or thyroid problems, obesity, women with trouble conceiving, early or late puberty, celiac disease, delayed growth, unusually tall or short stature, or elevated cholesterol. Unchanged since last visit. ALLERGIES: Amoxicillin CURRENT MEDICATIONS: Current Outpatient Prescriptions Medication Sig Dispense Refill topiramate (TOPAMAX) 200 MG tablet Take by mouth 2 times daily levothyroxine (SYNTHROID) 200 MCG tablet Take 1 Tab (200 mcg) by mouth daily for 360 days 90 day supply 90 Tab 6 clonazePAM (KLONOPIN) 0.5 MG tablet Take 0.5 mg by mouth 3 times daily citalopram (CELEXA) 20 MG tablet Take 40 mg by mouth TRAZODONE HCL PO Take 25 mg by mouth ARIPiprazole (ABILIFY) 2 MG tablet Take by mouth daily Desogestrel-Ethinyl Estradiol (VIORELE PO) Take by mouth No current facility-administered medications for this visit. REVIEW OF SYSTEMS: Pertinent items are noted in HPI. CONSTITUTIONAL: negative for fever, weight loss, excessive appetite or fatigue, EYES: negative for change in vision ENT: negative for difficulty swallowing RESPIRATORY: negative for difficulty breathing, wheezing, stridor, tachypnea, CARDIOVASCULAR: negative for increased heart rate, syncope,cyanosis GI: negative for constipation, vomiting, diarrhea, : negative for frequent urination and nocturia; LMP 4 weeks ago SKIN: negative for flushing, changes in skin temperature or texture MUSCULOSKELETAL: negative for joint pain/ swelling, muscle weakness or swelling NEURO: negative for headache, weakness, visual changes, tremors PSYCH: positive for sleep disturbance, mood changes, depression, anxiety PHYSICAL EXAMINATION: Blood pressure 112/78, pulse 84, height 167.5 cm, weight 98.2 kg. 98 %ile (Z= 2.16) based on CDC 2-20 Years qvykzr-vlo-usi data using vitals from 05/23/2017. Body mass index is 35 kg/m . 98 %ile (Z= 1.98) based on CDC 06-04 Years BMI-for-age data using vitals from 05/23/2017. 75 %ile (Z= 0.66) based on CDC 06-04 Years hismkbi-hob-pix data using vitals from 05/23/2017., Wt Readings from Last 2 Encounters: 05/23/17 98.2 kg (98 %, Z= 2.16)* 01/07/17 (!) 104.9 kg (99 %, Z= 2.31)* * Growth percentiles are based on CDC 2-20 Years data. Ht Readings from Last 2 Encounters: 05/23/17 167.5 cm (75 %, Z= 0.66)* 10/30/16 168.3 cm (79 %, Z= 0.80)* * Growth percentiles are based on CDC 2-20 Years data. BP Readings from Last 2 Encounters: 05/23/17 112/78 01/08/17 128/53 Blood pressure percentiles are 49 % systolic and 86 % diastolic based on NHBPEP's 4th Report. Blood pressure percentile targets: 90: 126/80, 95: 130/84, 99 + 5 mmH/97. GENERAL APPEARANCE: alert, cooperative, no dysmorphic features, obese SKIN: no rashes, no acanthosis nigricans, no striae, warm and dry EYES: conjunctivae clear, pupils equal, round, reactive to light ENT: lips normal without lesions, Pharynx clear,and tonsils normal THYROID: no palpable thyroid, scar over anterior neck, LYMPH: cervical nodes are not enlarged LUNGS: unlabored respirations, clear to auscultation, good air exchange HEART: regular rate, regular rhythm, no murmurs detected, no edema of extremities ABDOMEN: soft, nontender, nondistended, no hepatosplenomegaly, no masses CHEST: symmetric MUSCULOSKELETAL: normal range of motion, no joint swelling or deformities, normal muscle mass : Deferred. NEURO: cranial nerves grossly intact, sensation grossly normal, Scarlett is alert and oriented, patellar and brachial reflexes are 2+. PSYCH: Scarlett is oriented and flat affect. LABS REVIEWED: Ref. Range 05/20/2017 00:00 T4 Free External Unknown 1.07 Thyroid Stimulating Hormone External Unknown 0.10 02/2017: TSH 0.35 11/01/16: HbA1C 5.3% Glucose 79 Cholesterol 213 Triglyceride 165 LDL: 125 HDL 55 ALT: 27 AST: 30 10/15/2016 00:00 A1c 5.2 T4 Free External 0.89 Thyroid Stimulating Hormone External 1.82 04/2016: TSH 7.96 Free T4 0.72 10/13/15: TSH 8.03 Free T4 0.81 08/2015: TSH 42.7; Free T4: 0.56 Was taking multivitamin with Iron at the same time. Increase dose to 150 mcg 05/11/15: TSH: 16.45 Free T4: 0.65 Calcium: 9.6 Phosphorus: 3.5 Ref. Range 04/11/2015 20:20 04/12/2015 06:15 Calcium, Ionized WB Latest Range: 4.60-5.28 mg/dL 4.49 (L) 4.42 (L) pH Latest Range: 7.350-7.450 7.408 7.435 Phosphorus Latest Range: 2.7-4.5 mg/dL 2.9 4.1 04/11/15: Pathology: FINAL DIAGNOSIS: A. Pretracheal lymph node, biopsy - No metastatic disease identified. B. Thyroid, left lobectomy - Hyperplastic nodule and patchy chronic thyroiditis. C. Tissue, biopsy, rule out parathyroid - Fragments of parathyroid tissue. D. Thyroid, right lobectomy - Patchy chronic thyroiditis. E. Left jugular lymph nodes, biopsy - No metastatic disease Identified. 03/08/15: Core biopsy: FINAL DIAGNOSIS: Follicular lesion, needle core of thyroid. COMMENT: The specimen could reflect a follicular adenoma or well differentiated follicular carcinoma. Recommend surgical removal. 03/08/15: FNA: Diagnostic Category: Benign Benign follicular nodule, consistent with a hyperplastic/adenomatoid nodule. Many groups of follicular cells and colloid present. Component Latest Ref Rng 03/08/2015 03/08/2015 03/08/2015 10:53 AM 10:53 AM 10:53 AM Sodium 133 - 145 mEq/L 139 Potassium 3.3 - 5.1 mEq/L 4.2 Chloride 96 - 108 mEq/L 106 Carbon Dioxide 22.0 - 29.0 mEq/L 24.6 BUN 4 - 19 mg/dL 13 Glucose 70 - 99 mg/dL 79 Total Bilirubin 0.0 - 1.0 mg/dl 0.4 AST 0 - 31 U/L 23 ALT 0 - 31 U/L 20 Alkaline Phosphatase 47 - 119 U/L 47 Calcium 7.6 - 11.0 mg/dL 9.6 Protein, Total 5.9 - 8.4 g/dL 7.4 Albumin 3.2 - 4.5 g/dL 4.2 Creatinine 0.50 - 1.00 mg/dL 0.70 Anti-Thyroglobulin Ab 0.0 - 4.0 IU/mL 13.5 (H) Thyroidperoxidase Ab 0.00 - 0.80 ISR 1.00 (H) TSH 0.350 - 5.500 uIU/mL 1.002 T4, Free 0.8 - 1.4 ng/dL 1.2 T3, Total 87.0 - 167.0 ng/mL 184.0 (H) 184.0 (H) 01/14/15: CBC: normal Hb 12.0 Glucose: 82 Per PCP note: Normal CMP, CBC, 11/2014: TSH 3.13 04/2013: TSH 0.879 IMAGING: Thyroid Ultrasound: 02/2015 Findings: right lobe 55 X 11X16 mm Left lobe: 66 X21X27 mm dominant mid to inferior pole solid/ complex nodule measuring 41 X21X35 mm. Impression: Thyromegaly with a dominant 4 cm nodule Reviewed images: homogenous echogenicity, large, well defined, solid nodule noted in left lobe. No abnormal calcifications noted. IMPRESSION: Scarlett is a 16 y.o. female with history of depression, here for follow up of Hypothyroidism s/p Total Thyroidectomy for Thyroid Nodule: Large 4 cm nodule in left thyroid lobe, with FNA positive for follicular lesion ( adenoma vs carcinoma on biopsy), underwent total thyroidectomy in March 2015 with no complications. Pathology confirmed hyperplastic nodule with thyroiditis. She is currently on synthroid 200 mcg replacement, and is clinically euthyroid. Her recent TSH is mildly suppressed. BMI greater than 95 th centile: Lost 15 lbs recently with diet changes. Encouraged about the positive results so far. PLAN: Reviewed recent labs. Will change levothyroxine to 175 mcg alternating with 200 mcg daily, Sent new prescription. Repeat Thyroid labs in 5-6 weeks- provided orders for repeat labs. Discussed balanced diet, regular physical activity and excellent results so far. Follow up in 6 months, sooner if concerns. Discussed transition to adult provider. Advised to check when they switch to adult primary care provider, as most are comfortable with treating hypothyroidism. For now will continue to follow here. Counseling and/or coordination of care (face to face time in the office) was greater than 30 minutes which is more than 50% of the total time of 45 minutes spent on the encounter. Thank you for the opportunity to participate in the care of Scarlett. If you have any questions, please do not hesitate to contact our office at [phone]. Sincerely, Xander Kim MD [facility] [address] [place], [place] [id number] TSH Collected: 05/20/2017 Status: F Source: YARSANISM 1:07 PM [facility] REPOSITORY TYPE CODE TESTS RESULT OUT OF RANGE REFERENCE UNITS LAB [id number](LO 0.30-5.60 mIU/m INC) Low TSH 0.10 Performed By: #### [id number] #### KASH [employer] [place] [address] FREE T4 Collected: 05/20/2017 Status: F Source: YARSANISM 1:07 PM [facility] REPOSITORY TYPE CODE TESTS RESULT OUT OF RANGE REFERENCE UNITS LAB [id number](LO 0.58-1.64 ng/dL INC) Normal T4 Free 1.07 Result Comment: Patients receiving more than 5mg/day of biotin may have interference in test results. A sample should be taken no sooner than eight hours after previous dose. Performed By: #### [id number] #### KASH [address] [place] [address] ALLERGIES ALLERGIES DATE TYPE / CODE NAME / CODE REACTION SEVERITY SOURCE 04/06/2017 Drug amoxicillin/O08005 Rash Unknown Adrian Allergy/416 3675(RXNORM) [facility] 726749([facility] ED CT) Repository 04/28/2013 DRUG AMOXICILLIN [facility]/[address] [place] [address] [id number]([facility] Repository ED CT) Drug/593772 amoxicillin [id number] Muslim 003([facility]) System Repository ENCOUNTERS ENCOUNTERS ADMIT/DISCHARGE ACCOUNT NUMBER ADMITTING ENCOUNTER LOCATION SOURCE CLASS 05/01/2018 [id number] Ambulatory [facility] ding:[facility] Repository 03/10/2018 [id number] [facility] 02/25/2018 [id number] Ambulatory [facility] ding:[facility] Repository 01/27/2018/03/13/[id number] [address] [facility] Repository 01/27/2018/01/28/[id number] [address] ding:[facility] System DEP Repository 01/27/[id number] Repository 01/27/[id number] Repository 12/19/2017/12/20/[id number] [address] ding[facility] Repository 12/19/[id number] Repository 11/26/2017/11/27/[id number] ding[facility] Repository 11/26/[id number] Repository 11/21/2017/11/22/19 [id number] Ambulatory Building:[place] [address] OCRINOLOGY [facility] Repository 10/07/2017/12/21/[id number] ding[facility] Repository 10/07/2017/06/[id number] ding:.[facility] Repository 10/07/2017 [id number] Ambulatory [address] [place] [address] Repository 10/07/2017 [id number] Ambulatory [address] [place] [address] Repository 07/29/2017 [id number] Ambulatory Napoleon Napoleon [facility] ding:[facility] Repository 06/07/2017/06/07/[id number] ding:SH.Lab [facility] System Repository 05/23/2017/05/23/19 [id number] Ambulatory Building:[address] Repository 05/20/2017/01/04/[id number] ding:.Lab [facility] System Repository PAYERS PAYERS ENCOUNTER GUARANTOR PAYER SUBSCRIBER SOURCE 05/01/2018 SCARLETT Primary AMOL Napoleon [id number] CR Insurance:MEDICAL MCCLUREDOB: [address] [id number] [address]Iia: Number: Repository [id number] (HP) Date:[id number] [address] [address]XY: 05/01/2018 Secondary NOT GIVENUNK Adrian Insurance:SELF PAY [facility] Number: Effective Repository Date:2018-05-01 03/10/2018 SCARLETT L Primary AMOL L Muslim MCCLUREDOB: Insurance:Medical MCCLUREDOB: [facility] [id number] WirtPolic Number: [id number] System [facility] [address] Effective [address] [facility] [address] Repository [address] [place] [address], Date:2018-03-05 - [address] [place] [address] [id number] [place] [address]Ezi: Name:Medical Melina [phone]: [address] (HP) [address]GE: [phone]) (HP) [phone] (WP) 02/25/2018 [facility] Campbell [id number] CR Insurance:MEDICAL MCCLUREDOB: [address] [id number] [place] [address]Wgl: Number: Repository [id number] (HP) Date:[id number] [address] [place] [address]DS: 02/25/2018 Secondary [facility] Insurance:SELF PAY [facility] Number: Effective Repository Date:2018-02-25 01/27/2018 [facility] AMOL Phelan MCCLUREDOB: Insurance:Medical MCCLUREDOB: [facility] WirtPolicy Number: [id number] [place] [address] [place] [address], Date:2018-01-27 - [address] [place] [address] [id number] [place] [address]Ssy: Name:Medical Mutual [id number]: [address] (HP) [phone]: [phone]) (HP) [phone] (WP) 01/27/2018 [facility] AMOL Phelan MCCLUREDOB: Insurance:Medical MCCLUREDOB: [facility] MutualPolicy Number: [id number] Repository [address] [place] [address], Date:2018-01-27 - [address] [place] [address] [id number] [place] [address]Otu: Name:Medical MutualPO [id number]: [address] (HP) [address]VO: [phone]) (HP) [phone] (WP) 01/27/2018 [facility] MCCLUREDOB: Insurance:Medical MCCLUREDOB: Hospitals [id number] [place] [address] [id number] [address] Number: [address], [id number] [id number]: Date:Plan Name:[facility] [id number]: (HP) (HP) 01/27/2018 [facility] Insurance:Medical MCCLUREDOB: [facility] [id number] Repository Number: [address] [place] [id number], Date:Plan Name:[facility] [id number]: (HP) 01/27/2018 [facility] MCCLUREDOB: Insurance:Medical MCCLUREDOB: [facility] [id number] [address] Number: [address] [place] [address] [id number] [id number]: Date:Plan Name:[facility] [id number]: (HP) (HP) 01/27/2018 [facility] Insurance:Medical MCCLUREDOB: [facility] [id number] Repository Number: [address] [place] [id number], Date:Plan Name:[facility] [id number]: (HP) 12/19/2017 [facility] MCCLUREDOB: Insurance:Medical MCCLUREDOB: [facility] WirtPolicy Number: [id number] Effective 8 [facility] Repository [address] [place] [address], Date:2017-12-[address] [place] [address] [id number] [place] [address]Yme: Name:Medical [facility] [address]Ewy: [facility] [address] [place] [address] (HP) [phone]: [phone]) (HP) [phone] (WP) 12/19/2017 [facility] MCCLUREDOB: Insurance:Medical MCCLUREDOB: Hospitals [facility] [id number] Repository [facility] Number: [address], [id number] [id number]: Date:Plan Name:[place] [id number]: (HP) (HP) 12/19/2017 [facility] Insurance:Medical MCCLUREDOB: [facility] [id number] Repository Number: 8 [facility] [id number], Date:Plan Name:[facility] [id number]: () 11/26/2017 [facility] MCCLUREDOB: Insurance:Medical MCCLUREDOB: [facility] WirtPolicy Number: [id number] System [facility] [address] Effective [address] [facility] [address] [address] Repository [address] [place] [address], Date:2017-11-[address] [place] [address] [id number] [place] [address]Bbt: Name:Medical [facility] [address]Xdp: [address] (HP) [address]NS: [phone]) (HP) [phone] (WP) 11/26/2017 [facility] MCCLUREDOB: Insurance:Medical MCCLUREDOB: [facility] [id number] [address] Number: [address], [id number] [id number]: Date:Plan Name:[facility] [id number]: (HP) (HP) 11/26/2017 [facility] Insurance:Medical MCCLUREDOB: [facility] [id number] Repository Number: 8 [facility] [id number] [address], Date:Plan Name:[facility] [id number]: (HP) 11/21/2017 SCARLETT [facility] MCCLUREDOB: Insurance:MEDICAL MCCLUREDOB: [facility] [id number] Repository [facility] [address] Number: [address], [id number] [address]Foo: Date: [place] [phone] () 11/21/2017 [facility] Insurance:MEDICAL MCCLUREDOB: [facility] [id number] Repository Number: 8 [facility] [id number] [address], Date: [place] [address] 10/07/2017 SCARLETTDebra Phelan MCCLUREDOB: Insurance:Medical MCCLUREDOB: [facility] MutualPolicy Number: [id number] [facility] Effective [address] [place] [address], Date:2017-10-07 - [address] [place] [address] [id number] [place] [address]Fnp: Name:[place] [id number]: [address] (HP) [phone]: [phone] () [phone] () 10/07/2017 SCARLETT Persaud Primary AM[facility] Phelan MCCLUREDOB: Insurance:Medical MCCLUREDOB: [facility] MutualPolicy Number: [id number] [facility] Effective [address] [facility] [address] Repository [address] [place] [address], Date:2017-10-07 - [address] [place] [address] [id number] [place] [address]Uyi: Name:Medical [facility] [address]Tdh: [address], [place] (VZ) [address]JH: [phone]) (HP) [phone] () 10/07/2017 [facility] MCCLUREDOB: Insurance:Medical MCCLUREDOB: [facility] [id number] [place] [address] [id number] Repository [facility] [address] Number: [address] [id number] [id number]: Date:Plan Name:[facility] [id number]: (HP) (HP) 10/07/2017 [facility] Insurance:Medical MCCLUREDOB: [facility] [id number] Repository Number: [address] [place] [id number], Date:Plan Name:[facility] [id number]: () 10/07/2017 [facility] MCCLUREDOB: Insurance:Medical MCCLUREDOB: [facility] [id number] [place] [address] [id number] Repository [facility] [address] Number: [address] [id number] [id number]: Date:Plan Name:[facility] [id number]: (HP) (HP) 10/07/2017 [facility] Insurance:Medical MCCLUREDOB: [facility] [id number] Repository Number: [address] [place] [id number], Date:Plan Name:[facility] [id number]: (HP) 07/29/2017 [id number] Insurance:MEDICAL MCCLUREDOB: [address] [id number] [address]Pue: Number: Repository [id number] (HP) Date:[id number] [address] [place] [address]UA: 07/29/2017 Secondary NOT GIVENUNK Adrian Insurance:SELF PAY [facility] Number: Effective Repository Date:2017-07-29 06/07/2017 SCARLETT Persaud Primary AMOL Phelan MCCLUREDOB: Insurance:Medical MCCLUREDOB: [facility] MutualPolicy Number: [id number] [facility] Effective [address] [facility] [address] Repository [address] [place] [address], Date:2017-06-[address] [place] [address] [id number] [facility]Zqz: Name:[id number]: [address] [place] [address] (HP) [phone]: (690) (HP) [phone] () 05/23/2017 SCARLETT Persaud Primary [facility] MCCLUREDOB: Insurance:MEDICAL MCCLUREDOB: [facility] [id number] Repository [facility] [address] Number: [address], [id number] [address] [place] [id number]: Date: [place] [phone] (HP) 05/23/2017 Secondary [facility] Insurance:MEDICAL MCCLUREDOB: [facility] [id number] Repository Number: [address] [facility] [address] [id number] [address] [place] [address], [place]: [place] [address] 05/20/2017 SCARLETT Persaud Primary [facility] Phelan MCCLUREDOB: Insurance:Medical MCCLUREDOB: [facility] MutualPolicy Number: [id number] [facility] Effective [address] [facility] [address] Repository [address] [place] [address], Date:2017-05-[address] [place] [address] [id number] [place] [address]Xje: Name:[facility] [address]Urh: [address], [place] () [address]DH: [phone] () [phone] ()
== END ==
PROVIDERS: Visit Provider Obstetrics & Gynecology
DX: Z11.3 Encounter for screening for infections with a predominantly sexual mode of transmission (principal)
CPT/HCPCS: 86706; 86803; 87340; 87491; 87591; 87661

== ENCOUNTER → 2018-11-25 15:09 | Outpatient (CLI) | payer OTHER, SELFPAY ==
[2018-11-25 17:15] LABS: Chlamydia Trachomatis by PCR Negative (Negative); Neisserai gonorrhoeae by PCR Negative (Negative); Probe Check PASS; Sample Adequacy Control PASS; Specimen Processing Control PASS
== END ==
PROVIDERS: Visit Provider Obstetrics & Gynecology
DX: Z11.3 Encounter for screening for infections with a predominantly sexual mode of transmission (principal)
CPT/HCPCS: 87491; 87591

== ENCOUNTER 2019-04-09 13:10 | Emergency (ER) | payer OTHER, SELFPAY ==
[2019-04-09 13:11] VITALS: BP 145/70; PULSE 71; RESP 20; TEMP 36.7; O2SAT 98; BMI 33.9
--- NOTE | 2019-04-09 14:06 | ED.DCSUM_ITS ---
- ER Visit Summary Date of Service: 04/09/19 Chief Complaint: Palpitations at work History of Present Illness: The patient is a 18 F past medical history of panic attacks and hypothyroidism. She had a thyroid resected due to a benign nodule. Is on thyroid medications reportedly has been taking it. She [place] lightheaded at work felt like she was having irregular heartbeat. That is since resolved. She denies any chest pain. She denies any currently shortness of breath. She denies abdominal pain. No nausea, vomiting or diarrhea. Physical Examination: Well-appearing young female. Vital signs are stable afebrile. Current heart rate 70. Pulse ox 90% on room air no signs of hypoxia. H EENT exam unremarkable. Neck nontender no lymphadenopathy. No JVD. Lungs clear to auscultation bilaterally. Heart regular rate and rhythm rate about 65 no murmur. Abdomen soft nontender normal bowel sounds no peritoneal signs. Patient moving all 4 extremities. Neurovascular intact. Calves are nontender without edema or cords. Normal supervisor salvage strength. Normal dorsi plantarflexion neurologic exam is normal. Test Results: EKG shows a normal sinus rhythm with no signs of ischemia nor dysrhythmia. Rate is 63. Emergency Department Course and Treatment: Normal clinical exam. Heart rate in the 60s. EKG will be obtained if that is normal she will be discharged home. Repeat exam at 1442 patient is doing well be discharged home. Treatment Plan: Follow-up with his PCP. Disposition: Discharge Impression: Acute palpitations of uncertain etiology resolved This note was generated with [employer] dictation software. It may contain incorrect words, spelling, and punctuation that were not noted in review of the chart prior to signing ED Disposition - Plan for ED Patient: Referrals: Care Physician,No Primary [Primary Care Provider] -
--- NOTE | 2019-04-09 14:06 | EKG12_ITS ---
Test Reason : PALPS Blood Pressure : / mmHG Vent. Rate : 063 BPM Atrial Rate : 063 BPM P-R Int : 106 ms QRS Dur : 088 ms QT Int : 420 ms P-R-T Axes : 062 073 039 degrees QTc Int : 429 ms Sinus rhythm with sinus arrhythmia with short VT Otherwise normal ECG Confirmed by LIYA LONGORIA, JACKSON ([id number]), publications editor OSMIN MEZA ([id number]) on 04/10/2019 10:15:40 AM Referred By: CORNELIO Confirmed By:LOKESH NICKERSON MD
[2019-04-09 14:33] VITALS: BP 122/107; PULSE 68; RESP 16; O2SAT 98
--- NOTE | 2019-04-09 14:43 | ED.DEP ---
ED Disposition - Plan for ED Patient: Disposition: Home or Assisted Living Instructions: Palpitations Referrals: Care Physician,No Primary [Primary Care Provider] - As Needed Additional Instructions: Your EKG was normal. Follow-up with your doctor as needed. Return if feeling worse.
[2019-04-09 14:51] VITALS: BP 122/81; PULSE 68; RESP 13; O2SAT 98
== END 2019-04-09 14:52 | disposition home or self-care (01) ==
PROVIDERS: Emergency Provider Emergency Medicine
DX: R00.2 Palpitations (principal); E03.9 Hypothyroidism, unspecified; F41.0 Panic disorder [episodic paroxysmal anxiety]; F12.90 Cannabis use, unspecified, uncomplicated; Z72.0 Tobacco use
CPT/HCPCS: 93005; 99282

== ENCOUNTER 2019-04-21 13:15 | Emergency (ER) | payer OTHER, SELFPAY ==
[2019-04-21 13:15] VITALS: BP 149/89; PULSE 60; RESP 18; TEMP 36.6; O2SAT 100; BMI 33.9
[2019-04-21 13:23] VITALS: RESP 16
--- NOTE | 2019-04-21 13:34 | RAD_ITS ---
STUDY: X-RAY CHEST REASON FOR EXAM: Female, 18 years old. Chest pain started yesterday -- some SOB TECHNIQUE: Single AP portable view of the chest. COMPARISON: None. FINDINGS: EKG electrodes are seen. The lungs are clear and expanded. There is no demonstrated pleural abnormality. Normal size heart. Normal mediastinum and marian. Normal visualized pulmonary arteries. Normal visualized aortic arch and descending thoracic aorta. Normal visualized thoracic spine. Normal visualized ribs, clavicles, and shoulders. There is no demonstrated abnormality of the visualized soft tissue structures of the upper abdomen. RAD/Chest 1 View (Portable) IMPRESSION: Normal x-ray examination of the chest. Electronically Signed: Vitor Cordova, at 13:54 EST , Service support ,
--- NOTE | 2019-04-21 13:34 | EKG12_ITS ---
Test Reason : Blood Pressure : / mmHG Vent. Rate : 059 BPM Atrial Rate : 059 BPM P-R Int : 126 ms QRS Dur : 086 ms QT Int : 430 ms P-R-T Axes : 061 075 040 degrees QTc Int : 425 ms Sinus bradycardia Otherwise normal ECG Confirmed by MICHOACANO BLACKBURN ([id number]), graphic editor OSMIN MEZA ([id number]) on 04/23/2019 10:48:50 AM Referred By: [facility] Confirmed By:MICHOACANO BLACKBURN
[2019-04-21] MEDS: Ketorolac 15 MG/ML Vial IV (14:05)
[2019-04-21 14:19] LABS: D-Dimer Quantitative (DVT/PE) 0.36 FEU/ug/m (0.27-0.49)
--- NOTE | 2019-04-21 16:49 | ED.DEP ---
ED Disposition - Plan for ED Patient: Instructions: Chest Wall Strain Prescriptions: cycloBENZAPRine HCl [Flexeril] 10 mg PO TID PRN #20 tablet PRN Reason: Muscle Spasm Naproxen [Naprosyn] 500 mg PO BID PRN #20 tablet Referrals: Care Physician,No Primary [Primary Care Provider] -
--- NOTE | 2019-04-21 16:50 | ED.VISSUMM ---
- ER Visit Summary Date of Service: 04/21/19 Chief Complaint: Chest pain History of Present Illness: The patient is a 18 F presenting with chest pain. Patient states this started 2 days ago. Pain has been constant and worsened when she bends over or moves her arms in different positions. It is worse with deep breathing. She does do heavy lifting at work but does not recall a specific injury. No recent fall. She denies PE/DVT risk factors. She has not taken any medications at home. She denies fever or other complaints. Physical Examination: Vitals are stable. Patient is afebrile. Alert no acute distress. HEENT exam is unremarkable. Neck is supple. Lungs are clear and equal bilaterally. Heart is regular rate and rhythm. Abdomen is soft nontender nondistended. Extremities are unremarkable. Skin is warm and dry. No focal neurologic deficit. Remainder of exam is unremarkable. Emergency Department Course and Treatment: EKG is sinus bradycardia rate of 59 with no acute ischemic changes. D-dimer is negative. Chest x-ray shows no acute process. Patient was given Toradol IV. She was given prescription for Naprosyn and Flexeril. Advised to follow up with her primary care physician. Advised return to ED if worsening complaints. Disposition: Discharge home Impression: Chest wall pain This note was generated with [employer] dictation software. It may contain incorrect words, spelling, and punctuation that were not noted in review of the chart prior to signing ED Disposition - Plan for ED Patient: Instructions: Chest Wall Strain Prescriptions: cycloBENZAPRine HCl [Flexeril] 10 mg PO TID PRN #20 tab PRN Reason: Muscle Spasm Prescription Printed Naproxen [Naprosyn] 500 mg PO BID PRN #20 tab Prescription Printed Referrals: Care Physician,No Primary [Primary Care Provider] -
[2019-04-21 16:55] VITALS: BP 137/79; PULSE 62; RESP 16; O2SAT 100
== END 2019-04-21 16:58 | disposition home or self-care (01) ==
PROVIDERS: Emergency Provider Emergency Medicine
DX: R07.89 Other chest pain (principal); Z72.0 Tobacco use
CPT/HCPCS: 71045; 85379; 93005; 96374; 99282; A4216

== ENCOUNTER → 2019-07-28 | Outpatient (CLI) | payer OTHER, SELFPAY ==
[2019-07-28 15:16] VITALS: BMI 37.1
[2019-07-28 17:22] LABS: Vitamin B12 570 pg/mL (211-911); Vitamin D,25 Hydroxy 17.8 ng/mL
[2019-07-28 20:17] LABS: T4 Free Direct 0.54 ng/dL (0.76-1.46)
== END | disposition home or self-care (01) ==
LOC: LABSPEC 16:45
PROVIDERS: Referring Provider Internal Medicine Endocrinology, Diabetes & Metabolism; Visit Provider Internal Medicine Endocrinology, Diabetes & Metabolism
DX: R25.2 Cramp and spasm (principal); R20.2 Paresthesia of skin; M79.609 Pain in unspecified limb; E89.0 Postprocedural hypothyroidism; E55.9 Vitamin D deficiency, unspecified
CPT/HCPCS: 82306; 82607; 84439; 84443